=== PATIENT | male | born 1955 | race Hispanic/Latino ===

== ENCOUNTER 2024-03-21 07:19 | Emergency (ER) | payer OTHER ==
[~2024-03-21] VITALS: Ht 167.6 cm; Wt 68.5 kg
[~2024-03-21 07:19] MED LIST: AEC81 PO; METO-408 PO; ROSU20TA73 PO
[2024-03-21 07:20] VITALS: BP 164/74; PULSE 67; RESP 18
[2024-03-21] MEDS ORDERED: TAMS-1 PO (07:52)
[2024-03-21] MEDS ORDERED: ACET-2743 PO (07:52)
[2024-03-21] MEDS ORDERED: SULF1TAB42 PO (07:52)
== END 2024-03-21 08:15 | disposition home or self-care (01) ==
LOC: EDH 07:19
DX: T85.618A Breakdown (mechanical) of other specified internal prosthetic devices, implants and grafts, initial encounter (principal); Z79.82 Long term (current) use of aspirin; Z79.899 Other long term (current) drug therapy; Y69 Unspecified misadventure during surgical and medical care; Y92.89 Other specified places as the place of occurrence of the external cause
CPT/HCPCS: 51702